=== PATIENT | male | born 1995 | race Caucasian/White ===

== ENCOUNTER 2024-01-31 20:31 | Emergency (ER) | payer SELFPAY ==
[~2024-01-31] VITALS: Ht 167.6 cm; Wt 64.0 kg
[2024-01-31 20:36] VITALS: O2SAT 100
[2024-02-01] VITALS: BP 123/61; PULSE 62; RESP 18; TEMP 97.9
[2024-02-01] MEDS: IBUPROFEN 600MG TABLET PO ONE (01:25)
[2024-02-01] MEDS: ACETAMINOPHEN 325MG TABLET PO ONE (01:25)
[2024-02-01] MEDS ORDERED: IBUP-1523 MT (02:00)
[2024-02-01] MEDS ORDERED: TOPUD MT (02:00)
== END 2024-02-01 02:20 | disposition home or self-care (01) ==
LOC: ER 20:31
DX: S80.11XA Contusion of right lower leg, initial encounter (principal); V09.9XXA Pedestrian injured in unspecified transport accident, initial encounter; Y93.89 Activity, other specified; Y92.89 Other specified places as the place of occurrence of the external cause; Y99.8 Other external cause status
CPT/HCPCS: 73560; 73590; 73610; 99284